=== PATIENT | female | born 1945 | race Asian ===

== ENCOUNTER 2024-08-13 18:35 | Inpatient (IN) | payer MEDICARE ==
[~2024-08-13] VITALS: Ht 162.6 cm; Wt 62.1 kg
[2024-08-13 19:36] LABS: BASOPHILS % (AUTO) 0.7 % (0.0-2.0); EOSINOPHILS % (AUTO) 0.7 % (0.0-6.0); HEMATOCRIT 35 % (33-45); HEMOGLOBIN 11.9 g/dL (11.5-14.8); LYMPHOCYTES # (AUTO) 1.1 K/uL (0.8-4.8); LYMPHOCYTES % (AUTO) 18.4 % (20.0-44.0); MEAN CORPUSCULAR HEMOGLOBIN 29 PG (26.0-33.0); MEAN CORPUSCULAR HGB CONC 34 g/dl (31.0-36.0); MEAN CORPUSCULAR VOLUME 86 fL (82-100); MONOCYTES # (AUTO) 0.9 K/uL (0.1-1.30); MONOCYTES % (AUTO) 15.9 % (2.0-12.0); NEUTROPHILS # (AUTO) 3.7 K/uL (1.8-8.9); NEUTROPHILS % (AUTO) 64.3 % (43.0-81.0); PLATELET COUNT (AUTO) 278 K/uL (150-450); RED BLOOD CELL COUNT(AUTO) 4.05 MIL/uL (4.0-5.2); RED CELL DISTRIBUTION WIDTH 13.4 % (11.5-15.0); WHITE BLOOD COUNT (AUTO) 5.7 K/uL (4.3-11.0)
[2024-08-13 19:45] LABS: CALCIUM, SERUM 9.5 mg/dL (8.5-10.1); CARBON DIOXIDE 21 mmol/L (21-32); CHLORIDE 93 mmol/L (98-107); CREATININE 0.9 mg/dL (0.6-1.3); GLUCOSE 80 mg/dL (74-106); POTASSIUM 3.8 mmol/L (3.5-5.1); SODIUM SERUM 125 mmol/L (136-145); UREA NITROGEN, BLOOD 17 mg/dL (7-18)
[2024-08-13 19:57] LABS: ALANINE AMINOTRANSFERASE 14 U/L (12-78); ALBUMIN 3.8 g/dL (3.4-5.0); ALKALINE PHOSPHATASE 45 U/L (46-116); ASPARTATE AMINOTRANSFERASE 20 U/L (15-37); BILIRUBIN,DIRECT 0.2 mg/dL (0.0-0.2); BILIRUBIN,TOTAL 0.7 mg/dL (0.2-1.0); NT-PRO BNP 126 pg/mL (0-125); TOTAL PROTEIN, SERUM 7.4 g/dL (6.4-8.2)
[2024-08-13] MEDS ORDERED: IV NS 0.9% 250 ML IV ONE (20:05)
[2024-08-13] MEDS ORDERED: IOHEXOL-350 100 ML VIAL IV ONE (20:05)
[2024-08-13] MEDS ORDERED: ASPIRIN 325 MG TABLET ONE (21:58)
[2024-08-13] MEDS: ASPIRIN 325 MG TABLET PO ONE (21:59)
[2024-08-13] MEDS ORDERED: MAGNESIUM HYDROXIDE 30 ML UDC PO PRN (23:00)
[2024-08-13] MEDS ORDERED: ACETAMINOPHEN 325 MG TABLET PO PRN (23:00)
[2024-08-13] MEDS ORDERED: MAG HYDROX/AL HYDROX/SIMETH 30 ML UDC PO PRN (23:00)
[2024-08-13] MEDS ORDERED: ONDANSETRON HCL/PF 4 MG/2 ML VIAL IVP PRN (23:00)
[2024-08-13] MEDS ORDERED: MORPHINE SULFATE INJ 2 MG/ML DISP.SYRIN IV PRN (23:00)
[2024-08-13] MEDS ORDERED: DEXTROSE 50%-WATER 50 ML DISP.SYRIN IV PRN (23:30)
[2024-08-13] MEDS ORDERED: NITROGLYCERIN 0.4 MG/TAB BOTTLE ONE (23:37)
[2024-08-13] MEDS: NITROGLYCERIN 0.4 MG/TAB BOTTLE SL ONE (23:39)
[2024-08-13] MEDS: IV NS 0.9% 1,000 ML IV SCH (23:48)
[2024-08-14 01:16] LABS: ANISOCYTOSIS 1+; BASOPHILS % (MANUAL) 0 % (0.0-2.0); EOSINOPHILS % (MANUAL) 0 % (0-4); LYMPHOCYTES % (MANUAL) 14 % (16-48); MONOCYTES % (MANUAL) 15 % (0-11.0); NEUTROPHILS % (MANUAL) 71 (42-76); PLATELET ESTIMATE ADEQUATE
[2024-08-14] MEDS ORDERED: HYDR-4077 PO (01:40)
[2024-08-14] MEDS ORDERED: METF-440 PO (01:46)
[2024-08-14] MEDS ORDERED: ROSU10TA2 PO (01:46)
[2024-08-14] MEDS ORDERED: IRBE300T19 PO (01:46)
[2024-08-14] MEDS ORDERED: GLIP5TAB13 PO (01:52)
[2024-08-14] MEDS ORDERED: LEVO88TA5 PO (01:52)
[2024-08-14] MEDS ORDERED: CARV12.52 PO (01:52)
[2024-08-14 05:49] LABS: BASOPHILS % (AUTO) 0.9 % (0.0-2.0); EOSINOPHILS # (AUTO) 0.1 K/uL (0.0-0.7); EOSINOPHILS % (AUTO) 1.9 % (0.0-6.0); HEMATOCRIT 34 % (33-45); HEMOGLOBIN 11.5 g/dL (11.5-14.8); LYMPHOCYTES # (AUTO) 0.7 K/uL (0.8-4.8); LYMPHOCYTES % (AUTO) 20.2 % (20.0-44.0); MEAN CORPUSCULAR HEMOGLOBIN 29 PG (26.0-33.0); MEAN CORPUSCULAR HGB CONC 34 g/dl (31.0-36.0); MEAN CORPUSCULAR VOLUME 86 fL (82-100); MONOCYTES # (AUTO) 0.7 K/uL (0.1-1.30); MONOCYTES % (AUTO) 21.4 % (2.0-12.0); NEUTROPHILS # (AUTO) 1.9 K/uL (1.8-8.9); NEUTROPHILS % (AUTO) 55.6 % (43.0-81.0); PLATELET COUNT (AUTO) 286 K/uL (150-450); RED BLOOD CELL COUNT(AUTO) 3.95 MIL/uL (4.0-5.2); RED CELL DISTRIBUTION WIDTH 13.6 % (11.5-15.0); WHITE BLOOD COUNT (AUTO) 3.5 K/uL (4.3-11.0)
[2024-08-14 06:07] LABS: CHOLESTEROL 130 mg/dL (<200); HDL CHOLESTEROL 55 mg/dL (40-60); LDL 65 mg/dL (0-99); TRIGLYCERIDES 81 mg/dL (30-150)
[2024-08-14] MEDS: hydrALAZINE HCL 50 MG TABLET PO SCH (06:07)
[2024-08-14 06:09] LABS: CALCIUM, SERUM 8.8 mg/dL (8.5-10.1); CARBON DIOXIDE 23 mmol/L (21-32); CHLORIDE 99 mmol/L (98-107); CREATININE 0.8 mg/dL (0.6-1.3); GLUCOSE 114 mg/dL (74-106); MAGNESIUM 2.1 mg/dL (1.8-2.4); POTASSIUM 3.9 mmol/L (3.5-5.1); SODIUM SERUM 133 mmol/L (136-145); UREA NITROGEN, BLOOD 12 mg/dL (7-18)
[2024-08-14] MEDS: BLOOD SUGAR DIAGNOSTIC 1 EACH STRIP IN SCH (07:58)
[2024-08-14] MEDS ORDERED: ASPIRIN EC 81 MG TABLET.DR PO ONE (09:19)
[2024-08-14] MEDS ORDERED: PANTOPRAZOLE 40 MG VIAL ONE (09:19)
[2024-08-14] MEDS: ASPIRIN EC 81 MG TABLET.DR PO SCH (09:29)
[2024-08-14] MEDS: PANTOPRAZOLE 40 MG VIAL IV SCH (09:30)
[2024-08-14] MEDS: METOPROLOL TARTRATE 50 MG TABLET PO SCH (11:20)
[2024-08-14] MEDS ORDERED: OMEG-178 PO (11:29)
[2024-08-14] MEDS ORDERED: [UNRECOGNIZED DRUG - CODE] PO (11:29)
[2024-08-14] MEDS ORDERED: MAGN400T52 PO (11:29)
[2024-08-14] MEDS ORDERED: CHOL200059 PO (11:29)
[2024-08-14 11:34] LABS: EOSINOPHILS % (MANUAL) 4 % (0-4); LYMPHOCYTES % (MANUAL) 14 % (16-48); MONOCYTES % (MANUAL) 8 % (0-11.0); NEUTROPHILS % (MANUAL) 74 (42-76); PLATELET ESTIMATE ADEQUATE
[2024-08-14] MEDS: INSULIN REGULAR, HUMAN 100 UNIT/ML 3 ML VIAL SQ PRN (11:42)
[2024-08-14 12:00] VITALS: BP 150/77; TEMP 97.7; O2SAT 96
[2024-08-14] MEDS ORDERED: METOPROLOL TARTRATE INJ 5 MG/5 ML AMPUL IVP PRN (12:30)
[2024-08-14] MEDS: NITROGLYCERIN 0.4 MG/TAB BOTTLE SL ONE (12:33)
[2024-08-14] MEDS ORDERED: NITROGLYCERIN 0.4 MG/TAB BOTTLE ONE (12:44)
[2024-08-14] MEDS ORDERED: IOHEXOL-350 100 ML VIAL IV ONE (12:48)
[2024-08-14] MEDS ORDERED: IV NS 0.9% 250 ML IV ONE (12:48)
[2024-08-14] MEDS ORDERED: CT SWABBABLE VALVE TRANS SET 1 EA INFUS.SET MC ONE (12:48)
[2024-08-14 12:55] VITALS: BP 148/81; TEMP 98.3; O2SAT 96
[2024-08-14 16:00] VITALS: BP_SYST 132; BP_SYST 136; BP_DIAS 71; TEMP 98.1; O2SAT 97
== END 2024-08-14 20:15 | disposition home or self-care (01) | DRG 206 ==
LOC: ER 18:43 → TELE 23:12
PROVIDERS: ATTEND Nurse Practitioner Acute Care
DX: M94.0 Chondrocostal junction syndrome [Tietze] (principal); E87.1 Hypo-osmolality and hyponatremia; E11.9 Type 2 diabetes mellitus without complications; E78.5 Hyperlipidemia, unspecified; I10 Essential (primary) hypertension; E03.9 Hypothyroidism, unspecified
CPT/HCPCS: 36415; 71045-TC; 75574; 80048-TC; 80061-TC; 80076-TC; 82962-TC; 83735-TC; 83880; 84100-TC; 84443-TC; 84484-TC; 85025-TC; 93307-TC; A4223; G0378; J1815; J2470; J7030; J7050; Q9967